=== PATIENT | male | born 1970 | race Caucasian/White ===

== ENCOUNTER 2018-02-25 11:33 | Inpatient (IN) | payer BC ==
[~2018-02-25 11:33] MED LIST: EPHEDrine SULFATE 50 MG/5 ML SYG
[2018-02-25] MEDS: D5W-0.45 NACL + KCL 20 MEQ 1,000 ML IV ×2 (14:41→20:43)
[2018-02-25] MEDS ORDERED: ACETAMINOPHEN 325 MG TAB PO (15:00)
[2018-02-25] MEDS ORDERED: DIPHENHYDRAMINE 25 MG CAP PO (15:00)
[2018-02-25] MEDS ORDERED: CYCLOBENZAPRINE 10 MG TAB PO (15:00)
[2018-02-25] MEDS ORDERED: DIPHENHYDRAMINE 50 MG INJ IV ×2 (15:00→17:30)
[2018-02-25] MEDS: CEFAZOLIN 1 GM/50 ML (PMX) 50 ML IVPB ×3 (15:00→23:10)
[2018-02-25] MEDS ORDERED: HYDROmorphONE 0.5 MG/0.5 ML SYG IV (15:00)
[2018-02-25] MEDS ORDERED: NALOXONE (0.4 MG/ML) INJ IV (15:00)
[2018-02-25] MEDS ORDERED: CEPASTAT LOZENGE MT (15:00)
[2018-02-25] MEDS ORDERED: [UNRECOGNIZED DRUG - REMARK] IV (15:00)
[2018-02-25] MEDS ORDERED: AL HYDROX/MG HYDROX/SIMETH 30 ML CUP PO (15:00)
[2018-02-25] MEDS ORDERED: HYDROCODONE/APAP (10/325) TAB PO (15:00)
[2018-02-25] MEDS ORDERED: BISACODYL 10 MG SUPP PR (15:00)
[2018-02-25] MEDS ORDERED: SURGIFOAM POWDER 1 GM KIT (15:02)
[2018-02-25] MEDS ORDERED: CEFAZOLIN 1 GM INJ ×2 (15:03→16:25)
[2018-02-25] MEDS ORDERED: THROMBIN 5000 UNIT VIAL (15:03)
[2018-02-25] MEDS ORDERED: HEPARIN 1000 UNITS/ML 10 ML INJ (15:03)
[2018-02-25] MEDS ORDERED: BUPIVACAINE 0.25% (MPF) 30 ML INJ (15:03)
[2018-02-25] MEDS ORDERED: SODIUM CL BACTERIOSTATIC 30 ML INJ (15:03)
[2018-02-25] MEDS: LACTATED RINGER'S 1,000 ML IV* (15:04)
[2018-02-25] MEDS ORDERED: PROPOFOL 20 ML ×2 (15:15→16:24)
[2018-02-25] MEDS ORDERED: MIDAZOLAM 1 MG/ML 2 ML INJ (15:15)
[2018-02-25] MEDS ORDERED: METOCLOPRAMIDE 10 MG INJ (15:15)
[2018-02-25] MEDS ORDERED: FENTAnyl 50 MCG/ML VIAL (15:16)
[2018-02-25] MEDS: CEFAZOLIN 2 GM/50 ML (PMX) 50 ML IVPB (15:26)
[2018-02-25] MEDS: POLYMYXIN/BACITRACIN 1L IRRIG (15:56)
[2018-02-25] MEDS: THROMBIN 5000 UNIT VIAL TOP (15:56)
[2018-02-25] MEDS: BUPIVACAINE 0.25%/EPI (MDV) 50 ML VIAL INJ (15:56)
[2018-02-25] MEDS ORDERED: ROCURONIUM 50 MG INJ (16:24)
[2018-02-25] MEDS ORDERED: ONDANSETRON 4 MG INJ (16:25)
[2018-02-25] MEDS ORDERED: hydrALAzine 20 MG INJ IV (17:30)
[2018-02-25] MEDS ORDERED: LABETALOL HCL 20MG INJ IV (17:30)
[2018-02-25] MEDS ORDERED: ONDANSETRON 4 MG INJ IV (17:30)
[2018-02-25] MEDS ORDERED: HYDROmorphONE 1 MG/5 ML IV SYRINGE IV ×3 (17:30)
[2018-02-25] MEDS ORDERED: MEPERIDINE 25 MG INJ IV (17:30)
[2018-02-25] MEDS: HYDROmorphONE 0.2 MG/ML PCA IV (18:05)
[2018-02-25] MEDS: ATORVASTATIN 10 MG TAB PO (20:43)
[2018-02-25] MEDS: DOCUSATE SODIUM 100 MG CAP PO (20:43)
[2018-02-25] MEDS: TAMSULOSIN (SR) 0.4 MG CAP PO (20:43)
[2018-02-26] MEDS: D5W-0.45 NACL + KCL 20 MEQ 1,000 ML IV ×2 (00:41→10:41)
[2018-02-26 05:00] LABS: ADD MAN DIFF? NO
[2018-02-26 05:06] LABS: BASOPHILS % 0.1 % (0.0-2.0); EOSINOPHILS # 0.1 10^3/ul (0.0-0.5); EOSINOPHILS % 1.2 % (0.0-7.0); HEMATOCRIT 35.6 % (42.0-52.0); HEMOGLOBIN 12.3 g/dl (14.0-18.0); MEAN CORPUSCULAR HEMOGLOBIN 31.4 pg (29.0-33.0); MEAN CORPUSCULAR HGB CONC 34.6 g/dl (32.0-37.0); MEAN CORPUSCULAR VOLUME 90.8 fl (82.0-101.0); MONOCYTE # 0.7 10^3/ul (0.3-0.9); NEUTROPHIL # 5.9 10^3/ul (1.6-7.5); NEUTROPHILS % 76.4 % (39.0-77.0); PLATELET COUNT 142 10^3/UL (140-415); RED BLOOD COUNT 3.92 10^6/ul (4.70-6.10); RED CELL DISTRIBUTION WIDTH 12.1 % (11.5-14.5)
[2018-02-26 05:06] LABS: WHITE BLOOD COUNT 7.7 10^3/ul (4.8-10.8)
[2018-02-26 05:32] LABS: ANION GAP 8 (8-16); BLOOD UREA NITROGEN 19 mg/dl (7-20); CALCIUM 8.7 mg/dl (8.4-10.2); CARBON DIOXIDE 33 mmol/L (21-31); CHLORIDE 103 mmol/L (97-110); CREATININE 1.15 mg/dl (0.61-1.24); GLUCOSE 129 mg/dl (70-220); MAGNESIUM 1.9 mg/dl (1.7-2.5); POTASSIUM 3.4 mmol/L (3.5-5.1); SODIUM 141 mmol/L (135-144)
[2018-02-26] MEDS: CEFAZOLIN 1 GM/50 ML (PMX) 50 ML IVPB (06:11)
[2018-02-26] MEDS: FAMOTIDINE 20 MG INJ IV ×2 (08:17→21:39)
[2018-02-26] MEDS: TAMSULOSIN (SR) 0.4 MG CAP PO ×2 (08:18→21:39)
[2018-02-26] MEDS: DOCUSATE SODIUM 100 MG CAP PO ×2 (08:18→21:39)
[2018-02-26] MEDS: CITALOPRAM 20 MG TAB PO (08:18)
[2018-02-26] MEDS: AMLODIPINE 10 MG TAB PO (08:19)
[2018-02-26] MEDS: HYDROCHLOROTHIAZIDE 12.5 MG CAP PO (08:19)
[2018-02-26] MEDS: VALSARTAN 160 MG TAB PO (08:19)
[2018-02-26] MEDS: HYDROCODONE/APAP (10/325) TAB PO ×2 (09:18→18:07)
[2018-02-26] MEDS: POTASSIUM CHLORIDE (SR) 20 MEQ TAB PO (09:31)
[2018-02-26] MEDS: ONDANSETRON 4 MG INJ IV ×2 (09:32→18:06)
[2018-02-26] MEDS: BETHANECHOL 10 MG TAB PO ×2 (14:04→21:39)
[2018-02-26] MEDS: FINASTERIDE 5 MG TAB PO (18:06)
[2018-02-26] MEDS: ATORVASTATIN 10 MG TAB PO (21:39)
[2018-02-27] MEDS: ONDANSETRON 4 MG INJ IV (00:10)
[2018-02-27] MEDS: HYDROCODONE/APAP (10/325) TAB PO (00:15)
[2018-02-27] MEDS: FAMOTIDINE 20 MG INJ IV (09:00)
[2018-02-27] MEDS: HYDROCHLOROTHIAZIDE 12.5 MG CAP PO (09:00)
[2018-02-27] MEDS: FINASTERIDE 5 MG TAB PO (09:06)
[2018-02-27] MEDS: CITALOPRAM 20 MG TAB PO (09:06)
[2018-02-27] MEDS: BETHANECHOL 10 MG TAB PO (09:06)
[2018-02-27] MEDS: DOCUSATE SODIUM 100 MG CAP PO (09:06)
[2018-02-27] MEDS: TAMSULOSIN (SR) 0.4 MG CAP PO (09:10)
[2018-02-27] MEDS: VALSARTAN 160 MG TAB PO (09:10)
[2018-02-27] MEDS: AMLODIPINE 10 MG TAB PO (09:11)
[2018-02-27] MEDS: POTASSIUM CHLORIDE (SR) 20 MEQ TAB PO (09:11)
== END 2018-02-27 11:57 | disposition home or self-care (01) | DRG 473 ==
LOC: REC 11:33 → MS1 19:35
PROC: 0RG20AJ Fusion of 2 or more Cervical Vertebral Joints with Interbody Fusion Device, Posterior Approach, Anterior Column, Open Approach (ICD-10-PCS; principal; 2018-02-25 14:30)
PROC: 0RG20AJ Fusion of 2 or more Cervical Vertebral Joints with Interbody Fusion Device, Posterior Approach, Anterior Column, Open Approach (ICD-10-PCS; 2018-02-25 14:30)
DX: M96.0 Pseudarthrosis after fusion or arthrodesis (principal); I10 Essential (primary) hypertension; E78.5 Hyperlipidemia, unspecified; F33.42 Major depressive disorder, recurrent, in full remission; E87.6 Hypokalemia; R33.8 Other retention of urine
CPT/HCPCS: 72050; 80048; 83735; 85025; 86999; 97116; 97161; 97530